=== PATIENT | male | born 1950 | race Caucasian/White ===

== ENCOUNTER 2018-04-17 23:31 | Inpatient (IN) | payer BC ==
[~2018-04-17] VITALS: Ht 185.4 cm; Wt 97.5 kg
[~2018-04-17 23:31] MED LIST: ASPI-858 PO; LISI40TA4 PO; ZOLP10TA2 PO
[2018-04-17 23:45] VITALS: BP_SYST 142
[2018-04-18 01:13] LABS: CREATININE 1.15 mg/dL (0.55-1.30); POTASSIUM 3.9 mmol/L (3.5-5.1)
[2018-04-18 01:14] LABS: BASOPHILS % (AUTO) 0.3 % (0.0-2.0); EOSINOPHILS % (AUTO) 0.3 % (0.0-4.0); HEMATOCRIT 26.1 % (36-54); LYMPHOCYTES # (AUTO) 0.6 K/uL (1.0-5.5); LYMPHOCYTES % (AUTO) 7.9 % (20.5-51.5); MEAN CORPUSCULAR HEMOGLOBIN 25 pg (27-31); MEAN CORPUSCULAR HGB CONC 32 % (32-36); MEAN CORPUSCULAR VOLUME 77 fL (79.0-98.0); MONOCYTES # (AUTO) 0.6 K/uL (0.0-1.0); MONOCYTES % (AUTO) 8.1 % (1.7-9.3); NEUTROPHILS # (AUTO) 6.2 K/uL (1.8-7.7); NEUTROPHILS % (AUTO) 83.4 % (40.0-70.0); PLATELET COUNT (AUTO) 105 K/uL (130-430); RED BLOOD CELL COUNT(AUTO) 3.39 MIL/uL (4.2-6.2); WHITE BLOOD COUNT (AUTO) 7.4 K/uL (4.8-10.8)
[2018-04-18 01:16] LABS: HEMOGLOBIN 8.4 g/dL (14.0-18.0)
[2018-04-18 01:19] LABS: CALCIUM 7.9 mg/dL (8.4-11.0); TOTAL BILIRUBIN 0.5 mg/dL (0.0-1.0)
[2018-04-18] MEDS ORDERED: METO-442 PO (01:52)
[2018-04-18] MEDS ORDERED: PLE5 PO (01:52)
[2018-04-18] MEDS ORDERED: BACL10TA PO (01:53)
[2018-04-18] MEDS ORDERED: NACL 0.9% 1,000 ML IV ONE (02:00)
[2018-04-18] MEDS ORDERED: ONDANSETRON HCL 4 MG/2 ML VIAL IVP ONE (02:00)
[2018-04-18] MEDS ORDERED: AZITHROMYCIN 500 MG in NS 250 ML IV ONE (03:30)
[2018-04-18] MEDS ORDERED: cefTRIAXone 1 GM IVPB PREMIX 50 ML IV ONE (03:30)
[2018-04-18] MEDS ORDERED: ALBUTEROL SULFATE 0.083% 2.5 MG/3 ML VIAL.NEB INH PRN (03:45)
[2018-04-18] MEDS ORDERED: ACETAMINOPHEN 325 MG TABLET PO PRN (03:45)
[2018-04-18] MEDS ORDERED: AZITHROMYCIN 500 MG/VIAL (ZITHROMAX) IV ONE (03:51)
[2018-04-18 04:28] VITALS: BP_SYST 142
[2018-04-18 04:30] VITALS: BP_SYST 138
[2018-04-18 08:00] VITALS: BP_SYST 123
[2018-04-18] MEDS ORDERED: METOPROLOL TARTRATE 50 MG TABLET PO ONE (09:30)
[2018-04-18] MEDS ORDERED: amLODIPine BESYLATE 5 MG TABLET PO ONE (09:30)
[2018-04-18] MEDS ORDERED: ASPIRIN 325 MG TABLET PO ONE (09:30)
[2018-04-18] MEDS ORDERED: LORazepam 2 MG/ML VIAL IVP PRN (09:45)
[2018-04-18] MEDS ORDERED: THIAMINE HCL 100 MG TABLET PO ONE (09:45)
[2018-04-18] MEDS ORDERED: MORPHINE 4 MG/ML INJ. SYRINGE IVP PRN ×2 (09:45)
[2018-04-18 10:14] LABS: BASOPHILS % (AUTO) 0.6 % (0.0-2.0); EOSINOPHILS # (AUTO) 0.1 K/uL (0.0-0.4); EOSINOPHILS % (AUTO) 1.1 % (0.0-4.0); HEMATOCRIT 23.9 % (36-54); HEMOGLOBIN 7.7 g/dL (14.0-18.0); LYMPHOCYTES # (AUTO) 0.9 K/uL (1.0-5.5); MEAN CORPUSCULAR HEMOGLOBIN 25 pg (27-31); MEAN CORPUSCULAR HGB CONC 32 % (32-36); MEAN CORPUSCULAR VOLUME 78 fL (79.0-98.0); MONOCYTES # (AUTO) 0.7 K/uL (0.0-1.0); MONOCYTES % (AUTO) 13.4 % (1.7-9.3); NEUTROPHILS # (AUTO) 3.6 K/uL (1.8-7.7); NEUTROPHILS % (AUTO) 67.9 % (40.0-70.0); RED BLOOD CELL COUNT(AUTO) 3.08 MIL/uL (4.2-6.2)
[2018-04-18 10:23] LABS: WHITE BLOOD COUNT (AUTO) 5.3 K/uL (4.8-10.8)
[2018-04-18 10:27] LABS: CALCIUM 7.4 mg/dL (8.4-11.0); CREATININE 1.22 mg/dL (0.55-1.30); POTASSIUM 3.7 mmol/L (3.5-5.1)
[2018-04-18 10:32] LABS: ALBUMIN 1.9 g/dL (3.4-4.8); TOTAL BILIRUBIN 0.4 mg/dL (0.0-1.0)
[2018-04-18 10:43] LABS: PLATELET COUNT (AUTO) 87 K/uL (130-430)
[2018-04-18 12:08] VITALS: BP_SYST 125
[2018-04-18 15:16] LABS: BILIRUBIN,URINE NEGATIVE (NEGATIVE); BLOOD, URINE 3+ (NEGATIVE); CLARITY/URINE CLEAR (CLEAR); COLOR,URINE YELLOW (YELLOW); GLUCOSE,URINE NEGATIVE (NEGATIVE); KETONES,URINE NEGATIVE (NEGATIVE); LEUKOCYTE ESTERASE ,URINE NEGATIVE (NEGATIVE); NITRITE, URINE NEGATIVE (NEGATIVE); PROTEIN URINE TRACE (NEGATIVE); UROBILINOGEN,URINE 0.2 (0.2-1.0)
[2018-04-18 15:23] LABS: BACTERIA,URINE FEW /HPF (None Seen); WBC,URINE 0-3 /HPF (0-3)
[2018-04-18 16:45] VITALS: BP_SYST 121
[2018-04-18 20:00] VITALS: BP_SYST 125
[2018-04-18] MEDS: METOPROLOL TARTRATE 50 MG TABLET PO SCH (20:34)
[2018-04-18] MEDS ORDERED: BACLOFEN 10 MG TABLET PO SCH (21:00)
[2018-04-19 00:14] VITALS: BP_SYST 124
[2018-04-19] MEDS ORDERED: AZITHROMYCIN 500 MG in NS 250 ML IV SCH (05:00)
[2018-04-19] MEDS ORDERED: cefTRIAXone 1 GM in D5W 50 ML IV SCH (06:00)
[2018-04-19 07:32] VITALS: BP_SYST 126
[2018-04-19] MEDS: METOPROLOL TARTRATE 50 MG TABLET PO SCH (08:16)
[2018-04-19] MEDS ORDERED: amLODIPine BESYLATE 5 MG TABLET PO SCH (09:00)
[2018-04-19] MEDS ORDERED: THIAMINE HCL 100 MG TABLET PO SCH (09:00)
[2018-04-19] MEDS ORDERED: ASPIRIN 325 MG TABLET PO SCH (09:00)
[2018-04-19 12:00] VITALS: BP_SYST 132
[2018-04-19 12:50] VITALS: BP_SYST 149
== END 2018-04-19 13:30 | disposition home or self-care (01) | DRG 194 ==
LOC: SED 23:31 → SMU 04-18 03:33
PROVIDERS: ADMIT Internal Medicine Hospice and Palliative Medicine; ATTEND Internal Medicine Hospice and Palliative Medicine
DX: J18.9 Pneumonia, unspecified organism (principal); E87.1 Hypo-osmolality and hyponatremia; D64.9 Anemia, unspecified; D69.6 Thrombocytopenia, unspecified; I10 Essential (primary) hypertension; F10.20 Alcohol dependence, uncomplicated; Y90.9 Presence of alcohol in blood, level not specified; F17.200 Nicotine dependence, unspecified, uncomplicated; Z88.5 Allergy status to narcotic agent; Z79.899 Other long term (current) drug therapy; Z95.2 Presence of prosthetic heart valve
CPT/HCPCS: 36415; 71045; 80048; 80053; 81000-TC; 83605; 83880; 85025; 85379; 86710; 87040-TC; 87086; 93306; 93970; 96361; 96365; 96367; 96375; 99285; J0456; J0696; J2270; J2405; J7030; J7050; J7060

== ENCOUNTER 2018-05-08 09:05 | Inpatient (IN) | payer BC ==
[~2018-05-08] VITALS: Ht 188 cm; Wt 98.9 kg
[~2018-05-08 09:05] MED LIST changes: +BACL10TA PO; -LISI40TA4 PO; +METO-442 PO; +PLE5 PO; -ZOLP10TA2 PO
--- NOTE | 2018-05-08 09:12 | NUR ---
Placed in room 1. Placed on hand profiler, blood pressure machine and pulse oximeter. To gown for exam. Side rails up. Report given to Barbara BARRY.
[2018-05-08 09:13] VITALS: BP_SYST 162
[2018-05-08] MEDS ORDERED: ALBUTEROL SULFATE 0.083% 2.5 MG/3 ML VIAL.NEB IH ONE (09:15)
[2018-05-08] MEDS ORDERED: IPRATROPIUM BROM 0.5 MG/2.5 ML VIAL.NEB (ATROVENT) IH ONE (09:15)
--- NOTE | 2018-05-08 09:17 | NUR ---
Medication reconciliation completed.
--- NOTE | 2018-05-08 09:24 | NUR ---
# 20 gauge angiocath placed to RAC. Use of asceptic technique. Opsite placed over site. Blood return noted. Blood for lab drawn from site. Flushed with 10 cc of normal saline. No evidence of infiltration noted. Patient tolerated well.
--- NOTE | 2018-05-08 09:24 | NUR ---
RT at bedside for breathing treatment, patient placed on mask. Tolerating well.
--- NOTE | 2018-05-08 09:24 | NUR ---
Patient arrived via POV with at bedside. Patient AAOx4, and able to communicate. Sentences are 5-6 words. Patient states he was here earlier in April for bronchitis and admitted for heart failure evaluation. Patient notes increasing shortness of breathe, productive cough, and pain in abdomen and lower chest related to cough. Patient temperature upon triage was 100.8F. Patient denies nausea, vomiting, diarrhea. Patient placed on regional tanker truck driver, changed to gown, 12-lead EKG completed at bedside, given to MD.
[2018-05-08 09:36] LABS: HEMATOCRIT 24.9 % (36-54); HEMOGLOBIN 8.1 g/dL (14.0-18.0); LYMPHOCYTES % (AUTO) 21.2 % (20.5-51.5); MEAN CORPUSCULAR HEMOGLOBIN 25 pg (27-31); MEAN CORPUSCULAR HGB CONC 33 % (32-36); MEAN CORPUSCULAR VOLUME 76 fL (79.0-98.0); NEUTROPHILS % (AUTO) 65.1 % (40.0-70.0); PLATELET COUNT (AUTO) 187 K/uL (130-430); RED BLOOD CELL COUNT(AUTO) 3.27 MIL/uL (4.2-6.2); RED CELL DISTRIBUTION WIDTH 17.5 % (9.0-15.0); WHITE BLOOD COUNT (AUTO) 3.2 K/uL (4.8-10.8)
[2018-05-08 09:37] LABS: EOSINOPHILS % (AUTO) 1.2 % (0.0-4.0); LYMPHOCYTES # (AUTO) 0.7 K/uL (1.0-5.5); MONOCYTES # (AUTO) 0.4 K/uL (0.0-1.0); MONOCYTES % (AUTO) 11.5 % (1.7-9.3); NEUTROPHILS # (AUTO) 2.1 K/uL (1.8-7.7)
[2018-05-08 10:02] LABS: CALCIUM 7.7 mg/dL (8.4-11.0); CREATININE 1.16 mg/dL (0.55-1.30); POTASSIUM 3.8 mmol/L (3.5-5.1)
[2018-05-08 10:07] LABS: ALBUMIN 2.2 g/dL (3.4-4.8); TOTAL BILIRUBIN 0.3 mg/dL (0.0-1.0)
--- NOTE | 2018-05-08 10:14 | NUR ---
Patient has blood cultures and lactic acid drawn by lab at bedside. IV ABX as ordered started after confirming draw with lab. Will continue to follow up regarding results.
[2018-05-08] MEDS ORDERED: cefTRIAXone 1 GM IVPB PREMIX 50 ML IV ONE (10:15)
[2018-05-08] MEDS ORDERED: methylPREDNISolone SOD SUCC/PF 62.5 MG/ML VIAL IVP ONE (11:30)
[2018-05-08] MEDS ORDERED: KETOROLAC TROMETHAMINE 30 MG VIAL IVP ONE (11:30)
[2018-05-08] MEDS ORDERED: NACL 0.9% 1,000 ML IV ONE (11:30)
--- NOTE | 2018-05-08 11:40 | NUR ---
Warm blanket provided per request
[2018-05-08] MEDS ORDERED: FUROSEMIDE 20 MG/2 ML VIAL IVP ONE (12:30)
[2018-05-08] MEDS ORDERED: AZITHROMYCIN 500 MG in NS 250 ML IV ONE (12:45)
[2018-05-08] MEDS ORDERED: AZITHROMYCIN 500 MG/VIAL (ZITHROMAX) IV ONE (13:06)
--- NOTE | 2018-05-08 13:06 | NUR ---
Patient will be admitted to care of Dr. Kirk. Admitted to MedSurg unit. Will go to room 101A. Belongings list completed. Summary report printed. Report will be given at bedside.
--- NOTE | 2018-05-08 13:28 | NUR ---
ADMIT NOTE Received pt from ER to the floor with a diagnosis of pneumonia. Admission process initiated. patient oriented to pain management, safety and call light-teach back done.
[2018-05-08 13:37] VITALS: BP_SYST 153
[2018-05-08] MEDS ORDERED: IPRATROPIUM BROM 0.5 MG/2.5 ML VIAL.NEB (ATROVENT) INH PRN (13:45)
--- NOTE | 2018-05-08 15:48 | NUR ---
Patient's at bedside. POC is explained.
[2018-05-08 16:13] VITALS: BP_SYST 148
[2018-05-08 18:05] VITALS: BP_SYST 148
--- NOTE | 2018-05-08 18:12 | NUR ---
Patient is eating dinner at this time, no signs of distress noted.
--- NOTE | 2018-05-08 19:12 | NUR ---
OPENING NOTE Received report from Frederic. Patient resting in bed awake, alert, oriented x4. Breathing unlabored and even on 2L oxygen via NC. No signs of distress, no needs at this time. Family at the bedside. Fall and safety precautions in place. Bed in lowest position, brake on, call light within reach. Will continue to monitor.
[2018-05-08] MEDS: IPRATROPIUM BROM 0.5 MG/2.5 ML VIAL.NEB (ATROVENT) INH SCH (19:31)
[2018-05-08 20:16] VITALS: BP_SYST 146
[2018-05-08] MEDS: TEMAZEPAM 15 MG CAPSULE PO PRN (20:49)
--- NOTE | 2018-05-08 20:51 | NUR ---
Patient requested sleeping pill. Administered PRN restoril PO as ordered. Educated patient on safety and side effects. Encouraged call for assist.
--- NOTE | 2018-05-08 21:19 | NUR ---
Patient resting in bed awake, alert, oriented x4. Breathing unlabored and even on 2L oxygen via NC. No signs of distress, no needs at this time. Fall and safety precautions in place. Bed in lowest position, brake on, call light within reach. Will continue to monitor.
--- NOTE | 2018-05-08 21:45 | NUR ---
Assisted patient to the bathroom. Voided x1.
--- NOTE | 2018-05-08 23:57 | NUR ---
Patient resting in bed with eyes closed. Breathing unlabored and even on 2L oxygen via NC. No signs of distress, no needs at this time. Fall and safety precautions in place. Bed in lowest position, brake on, call light within reach. Will continue to monitor.
[2018-05-09 00:40] VITALS: BP_SYST 145
[2018-05-09] MEDS: IPRATROPIUM BROM 0.5 MG/2.5 ML VIAL.NEB (ATROVENT) INH SCH ×4 (00:41→19:40)
--- NOTE | 2018-05-09 07:03 | NUR ---
CLOSING NOTE Patient resting in bed with eyes closed. Breathing unlabored and even on 2L oxygen via NC. No signs of distress, no needs at this time. Fall and safety precautions in place. Bed in lowest position, brake on, call light within reach. Will endorse to day shift nurse.
--- NOTE | 2018-05-09 07:45 | NUR ---
opening note patient is resting in bed, alert and oriented, assessment completed, educated plan of care, patient verbalized understanding and tolerated well, no other needs at this time, fall and safety precautions in place, allergy band on, IV line clean and intact.
[2018-05-09] MEDS: cefTRIAXone 1 GM in D5W 50 ML IV SCH (08:14)
--- NOTE | 2018-05-09 08:14 | NUR ---
morning meds patient is resting in bed, educated on med use and side effects, patient verbalized understanding and tolerated well, no other needs at this time, fall and safety precautions in place, allergy band on, IV line clean and intact.
--- NOTE | 2018-05-09 08:14 | NUR ---
Rocephin patient is resting in bed, educated on medication use and side effects, patient verbalized understanding and tolerated well, no other needs at this time, bed in the lowest position, two side rails up, call light within reach, bed alarm on, allergy band on.
[2018-05-09 08:39] VITALS: BP_SYST 131
[2018-05-09] MEDS ORDERED: amLODIPine BESYLATE 5 MG TABLET PO ONE (09:45)
[2018-05-09] MEDS ORDERED: ASPIRIN 325 MG TABLET PO ONE (09:45)
[2018-05-09] MEDS ORDERED: METOPROLOL TARTRATE 50 MG TABLET PO ONE (09:45)
--- NOTE | 2018-05-09 09:58 | NUR ---
new morning meds patient is resting in bed, educated on med use and side effects, MD put in new orders, patient verbalized understanding and tolerated well, no other needs at this time, fall and safety precautions in place, allergy band on, IV line clean and intact.
[2018-05-09] MEDS ORDERED: IOHEXOL 350 mgI/mL, 150 ML INFUS..BTL IV ONE (10:05)
[2018-05-09] MEDS: AZITHROMYCIN 500 MG in NS 250 ML IV SCH (10:06)
--- NOTE | 2018-05-09 10:06 | NUR ---
zithromax patient is resting in bed, educated on med use and side effects, given late due to prior med scheduled and patient went to CT, patient verbalized understanding and tolerated well, no other needs at this time, fall and safety precautions in place, allergy band on, IV line clean and intact.
--- NOTE | 2018-05-09 10:18 | NUR ---
CONSULT CARDIOLOGY AVR DR CASE [phone] S/W [facility] OFFICE
[2018-05-09 10:39] LABS: HEMOGLOBIN 7.2 g/dL (14.0-18.0); MEAN CORPUSCULAR HEMOGLOBIN 25 pg (27-31); MEAN CORPUSCULAR HGB CONC 33 % (32-36); MEAN CORPUSCULAR VOLUME 76 fL (79.0-98.0); NEUTROPHILS % (AUTO) 74.4 % (40.0-70.0); PLATELET COUNT (AUTO) 194 K/uL (130-430); RED CELL DISTRIBUTION WIDTH 16.8 % (9.0-15.0)
[2018-05-09 10:40] LABS: BASOPHILS % (AUTO) 0.5 % (0.0-2.0); LYMPHOCYTES # (AUTO) 0.4 K/uL (1.0-5.5); LYMPHOCYTES % (AUTO) 14.1 % (20.5-51.5); MONOCYTES # (AUTO) 0.3 K/uL (0.0-1.0); NEUTROPHILS # (AUTO) 2.3 K/uL (1.8-7.7)
[2018-05-09 10:44] LABS: HEMATOCRIT 21.9 % (36-54); RED BLOOD CELL COUNT(AUTO) 2.88 MIL/uL (4.2-6.2); WHITE BLOOD COUNT (AUTO) 3.2 K/uL (4.8-10.8)
[2018-05-09 10:56] LABS: CALCIUM 7.7 mg/dL (8.4-11.0); CREATININE 1.1 mg/dL (0.55-1.30); POTASSIUM 3.7 mmol/L (3.5-5.1)
[2018-05-09 10:59] LABS: TOTAL BILIRUBIN 0.2 mg/dL (0.0-1.0)
--- NOTE | 2018-05-09 11:28 | NUR ---
CONSULT HEMATOLOGY ANEMIA DR DAVIS [phone] S/W [facility]
[2018-05-09 13:33] VITALS: BP_SYST 152
[2018-05-09 17:24] LABS: TOTAL IRON BIND. CAPACITY 332 ug/dL (250-450)
[2018-05-09 17:27] VITALS: BP_SYST 155
[2018-05-09] MEDS ORDERED: FUROSEMIDE 20 MG/2 ML VIAL IVP ONE (18:15)
--- NOTE | 2018-05-09 18:21 | NUR ---
Lasix patient is resting in bed, educated on med use and side effects, MD put in one time order, patient verbalized understanding and tolerated well, no other needs at this time, fall and safety precautions in place, allergy band on, IV line clean and intact.
--- NOTE | 2018-05-09 19:05 | NUR ---
closing note patient is resting in bed, visitors present, no other needs at this time, report given to noc shift nurse, fall and safety precautions in place, allergy band on, IV line clean and intact.
[2018-05-09] MEDS: BACLOFEN 10 MG TABLET PO SCH (20:43)
[2018-05-09] MEDS: METOPROLOL TARTRATE 50 MG TABLET PO SCH (20:43)
[2018-05-09 20:45] VITALS: BP_SYST 153
[2018-05-09] MEDS: TEMAZEPAM 15 MG CAPSULE PO PRN (20:46)
--- NOTE | 2018-05-09 20:47 | NUR ---
Routine Patient sitting on side of bed with no distress noted and no complaint of pain. Scheduled medications given per order. Patient stable.
[2018-05-10 00:07] VITALS: BP_SYST 146
[2018-05-10] MEDS: IPRATROPIUM BROM 0.5 MG/2.5 ML VIAL.NEB (ATROVENT) INH SCH ×4 (01:09→19:45)
--- NOTE | 2018-05-10 03:14 | NUR ---
Routine Patient asleep with no distress noted at this time.
--- NOTE | 2018-05-10 05:50 | NUR ---
PAGED I PAGED DR. EUCEDA @[id number] I SPOKE WITH GEOVANY DE JESUS
[2018-05-10] MEDS: ACETAMINOPHEN 325 MG TABLET PO PRN ×3 (06:22→23:59)
--- NOTE | 2018-05-10 06:24 | NUR ---
Routine Patient requested med for mild headache. Ordered med given. Patient stable throughout shift.
--- NOTE | 2018-05-10 07:45 | NUR ---
Opening Note received report from weight shifter RN, pt resting in bed, no acute distress noted, pt educated on use of call light and asked to call for assistance, pt verbalized understanding, call light in reach, pt educated on use of bed alarm for pt safety, pt refusing bed alarm, bed in low and locked position, fall and aspiration precautions in place.
[2018-05-10 07:56] LABS: CALCIUM 7.5 mg/dL (8.4-11.0); CREATININE 1.05 mg/dL (0.55-1.30); POTASSIUM 3.6 mmol/L (3.5-5.1)
[2018-05-10 08:00] VITALS: BP_SYST 158
[2018-05-10 08:08] LABS: MEAN CORPUSCULAR HEMOGLOBIN 25 pg (27-31); MEAN CORPUSCULAR HGB CONC 33 % (32-36); MEAN CORPUSCULAR VOLUME 77 fL (79.0-98.0); RED BLOOD CELL COUNT(AUTO) 2.86 MIL/uL (4.2-6.2); RED CELL DISTRIBUTION WIDTH 17.2 % (9.0-15.0); WHITE BLOOD COUNT (AUTO) 3.7 K/uL (4.8-10.8)
[2018-05-10 08:09] LABS: PLATELET COUNT (AUTO) 242 K/uL (130-430)
[2018-05-10 08:11] LABS: HEMOGLOBIN 7.3 g/dL (14.0-18.0)
[2018-05-10 08:17] LABS: ALBUMIN 2.1 g/dL (3.4-4.8); THYROID STIMULATING HORMONE 2.54 uIu/mL (0.36-3.74); TOTAL BILIRUBIN 0.2 mg/dL (0.0-1.0)
[2018-05-10 08:19] LABS: TOTAL IRON BIND. CAPACITY 311 ug/dL (250-450)
[2018-05-10] MEDS: ASPIRIN 325 MG TABLET PO SCH (08:21)
[2018-05-10] MEDS: cefTRIAXone 1 GM in D5W 50 ML IV SCH (08:22)
[2018-05-10] MEDS: amLODIPine BESYLATE 5 MG TABLET PO SCH (08:28)
[2018-05-10] MEDS: METOPROLOL TARTRATE 50 MG TABLET PO SCH ×2 (08:29→22:30)
[2018-05-10 09:28] LABS: BASOPHILS % (AUTO) 0.3 % (0.0-2.0); EOSINOPHILS % (AUTO) 1.2 % (0.0-4.0); LYMPHOCYTES # (AUTO) 1.3 K/uL (1.0-5.5); LYMPHOCYTES % (AUTO) 34.2 % (20.5-51.5); MONOCYTES # (AUTO) 0.5 K/uL (0.0-1.0); MONOCYTES % (AUTO) 12.3 % (1.7-9.3); NEUTROPHILS # (AUTO) 1.9 K/uL (1.8-7.7)
--- NOTE | 2018-05-10 10:15 | NUR ---
RN Rounds late note due to meditech downtime pt ambulated to bathroom, voided x1, pt ambulated back to bed, no acute distress noted, pts family at bedside.
[2018-05-10] MEDS: FUROSEMIDE 40 MG TABLET PO SCH (10:26)
[2018-05-10] MEDS: AZITHROMYCIN 500 MG in NS 250 ML IV SCH (10:27)
[2018-05-10 12:46] VITALS: BP_SYST 154
--- NOTE | 2018-05-10 12:53 | NUR ---
RN Rounds pt resting in bed, no acute distress noted, family at bedside, no additional needs at this time, fall and aspiration precautions in place.
[2018-05-10] MEDS ORDERED: IOHEXOL 350 mgI/mL, 150 ML INFUS..BTL IV ONE (13:20)
--- NOTE | 2018-05-10 14:43 | NUR ---
Dietitian Recommendations *Recommend continuing clear liquid diet per MD orders. *If/when medically appropriate, advance diet to 2gm Na. Please see Nutritional Assessment for details. JEANNETTE, RD
[2018-05-10 15:07] VITALS: BP_SYST 158
--- NOTE | 2018-05-10 15:58 | NUR ---
RN Rounds pt resting in bed, pt aware of MDs order for UA, no acute distress noted, no additional needs at this time, fall and aspiration precautions in place.
--- NOTE | 2018-05-10 17:19 | NUR ---
Medication pt and pts educated on PRN tylenol use and side effects, pt and pts verbalized understanding, tolerated medication administration well, no acute distress noted, fall and aspiration precautions in place.
[2018-05-10 17:31] LABS: BILIRUBIN,URINE NEGATIVE (NEGATIVE); BLOOD, URINE 2+ (NEGATIVE); CLARITY/URINE CLEAR (CLEAR); COLOR,URINE YELLOW (YELLOW); GLUCOSE,URINE NEGATIVE (NEGATIVE); KETONES,URINE NEGATIVE (NEGATIVE); LEUKOCYTE ESTERASE ,URINE NEGATIVE (NEGATIVE); NITRITE, URINE NEGATIVE (NEGATIVE); PROTEIN URINE NEGATIVE (NEGATIVE); UROBILINOGEN,URINE 0.2 (0.2-1.0)
[2018-05-10 17:57] LABS: BACTERIA,URINE FEW /HPF (None Seen); MUCUS,URINE None Seen /LPF (None Seen); WBC,URINE 0-3 /HPF (0-3); YEAST,URINE None Seen /HPF (None Seen)
[2018-05-10] MEDS ORDERED: GOLYTELY / COLYTE SOLUTION 4 LITERS PO ONE (18:15)
[2018-05-10] MEDS ORDERED: BISACODYL 5 MG TABLET.DR (DULCOLAX) PO ONE (18:15)
--- NOTE | 2018-05-10 19:25 | NUR ---
Closing Note bedside SBAR report given to receiving RN, pt resting in bed, no acute distress noted, pt denies any pain, pts at bedside, call light in reach, bed in low and locked position, bed alarm on, fall and aspiration precautions in place, care endorsed.
--- NOTE | 2018-05-10 19:40 | NUR ---
ROUNDS PATIENT IN BED, NOT IN DISTRESS, VITALS STABLE. DENIES ANY PAIN AND DISCOMFORT AT THIS TIME. ON GOLYTELY AT THIS TIME FOR HIS SCHEDULED EGD/COLONOSCOPY TOMORROW, TOLERATING WELL. FAMILY AT THE BEDSIDE. NEEDS ATTENDED TO. SAFETY AND FALL PRECAUTION MEASURES IN PLACED. BED IN LOW AND LOCKED POSITION. CALL LIGHT PLACED WITHIN REACH.
[2018-05-10] MEDS: ALBUTEROL SULFATE 0.083% 2.5 MG/3 ML VIAL.NEB INH PRN (19:44)
--- NOTE | 2018-05-10 21:14 | NUR ---
MEDICATION DUE MEDICATIONS GIVEN SCHEDULED, TOLERATED WELL. WILL CONTINUE TO MONITOR.
[2018-05-10] MEDS: BACLOFEN 10 MG TABLET PO SCH (22:29)
[2018-05-10 23:00] VITALS: BP_SYST 144
[2018-05-10] MEDS: TEMAZEPAM 15 MG CAPSULE PO PRN (23:59)
--- NOTE | 2018-05-11 00:20 | NUR ---
PATIENT RESTING: Patient resting quietly. No acute distress noted. Vital signs within normal range.
[2018-05-11] MEDS: ALBUTEROL SULFATE 0.083% 2.5 MG/3 ML VIAL.NEB INH PRN ×2 (01:06→19:55)
[2018-05-11] MEDS: IPRATROPIUM BROM 0.5 MG/2.5 ML VIAL.NEB (ATROVENT) INH SCH ×4 (01:06→19:55)
--- NOTE | 2018-05-11 02:10 | NUR ---
ROUNDS PATIENT ASLEEP, NOT IN DISTRESS, VITALS STABLE. WILL CONTINUE TO MONITOR.
--- NOTE | 2018-05-11 04:15 | NUR ---
PATIENT RESTING: Patient resting quietly. No acute distress noted. Vital signs within normal range.
--- NOTE | 2018-05-11 06:41 | NUR ---
CLOSING NOTES PATIENT AWAKE, VITALS STABLE, DENIES ANY PAIN AND DISCOMFORT AT THIS TIME. CLAIMED TO HAVE CLEAR BOWEL MOVEMENT. ALL NEEDS ATTENDED TO. SAFETY AND FALL PRECAUTION MEASURES MAINTAINED. CALL LIGHT PLACED WITHIN REACH.
[2018-05-11 07:01] LABS: HEMATOCRIT 23.1 % (36-54); HEMOGLOBIN 7.6 g/dL (14.0-18.0); MEAN CORPUSCULAR VOLUME 77 fL (79.0-98.0); RED BLOOD CELL COUNT(AUTO) 3.01 MIL/uL (4.2-6.2); WHITE BLOOD COUNT (AUTO) 4.5 K/uL (4.8-10.8)
[2018-05-11 07:02] LABS: EOSINOPHILS # (AUTO) 0.2 K/uL (0.0-0.4); EOSINOPHILS % (AUTO) 3.5 % (0.0-4.0); LYMPHOCYTES # (AUTO) 1.4 K/uL (1.0-5.5); LYMPHOCYTES % (AUTO) 31.7 % (20.5-51.5); MEAN CORPUSCULAR HEMOGLOBIN 25 pg (27-31); MEAN CORPUSCULAR HGB CONC 33 % (32-36); MONOCYTES # (AUTO) 0.6 K/uL (0.0-1.0); MONOCYTES % (AUTO) 13.1 % (1.7-9.3); NEUTROPHILS # (AUTO) 2.3 K/uL (1.8-7.7); NEUTROPHILS % (AUTO) 50.7 % (40.0-70.0); PLATELET COUNT (AUTO) 278 K/uL (130-430); RED CELL DISTRIBUTION WIDTH 17.3 % (9.0-15.0)
[2018-05-11 07:04] LABS: ALBUMIN 2.1 g/dL (3.4-4.8); CALCIUM 7.5 mg/dL (8.4-11.0); CREATININE 1.03 mg/dL (0.55-1.30); POTASSIUM 3.1 mmol/L (3.5-5.1); TOTAL BILIRUBIN 0.3 mg/dL (0.0-1.0)
--- NOTE | 2018-05-11 07:29 | NUR ---
Opening Note/refuse bed alarm received report from shift supervisor film processing RN, pt resting in bed, no acute distress noted, pt educated on use of call light and asked to call for assistance, pt verbalized understanding, call light in reach, pt educated on use of bed alarm for pt safety, pt refusing bed alarm, bed in low and locked position, fall and aspiration precautions in place.
--- NOTE | 2018-05-11 07:55 | NUR ---
MD Rounds Rounds with Dr. Carroll, per MD okay to give pt clear liquids and medications today until 1100, verified with read back.
[2018-05-11 08:00] VITALS: BP_SYST 164
[2018-05-11 08:11] LABS: FOLATE (FOLIC ACID) 11.5 ng/mL (>3.0)
[2018-05-11] MEDS: POTASSIUM CHLORIDE 20 MEQ TAB.PRT.SR PO SCH (08:44)
[2018-05-11] MEDS: FUROSEMIDE 40 MG TABLET PO SCH (08:45)
[2018-05-11] MEDS: amLODIPine BESYLATE 5 MG TABLET PO SCH (08:46)
[2018-05-11] MEDS: METOPROLOL TARTRATE 50 MG TABLET PO SCH ×2 (08:46→20:21)
[2018-05-11] MEDS: ASPIRIN 325 MG TABLET PO SCH (08:48)
[2018-05-11] MEDS: cefTRIAXone 1 GM in D5W 50 ML IV SCH (08:48)
--- NOTE | 2018-05-11 08:50 | NUR ---
Medication pt educated on use and side effects of medication, pt verbalized understanding, tolerated medication administration well, pt ambulated to bathroom, steady gait noted, pt back in bed, family at bedside, per Dr. Glen luna aspirin this AM, fall and aspiration precautions in place.
[2018-05-11 10:26] VITALS: BP_SYST 144
--- NOTE | 2018-05-11 10:27 | NUR ---
IV catheter IV catheter to left AC leaking, catheter removed, catheter intact, no bleeding, pt educated on purpose and procedure for IV catheter placement, pt verbalized understanding, new IV catheter 22G placed to left forearm, flushes freely with blood return, pt tolerated well, pts family at bedside, fall and aspiration precautions in place.
[2018-05-11] MEDS: AZITHROMYCIN 500 MG in NS 250 ML IV SCH (10:50)
[2018-05-11 12:07] VITALS: BP_SYST 149
--- NOTE | 2018-05-11 12:35 | NUR ---
RN Rounds pt sleeping in bed, respirations even and unlabored, no acute distress noted, fall and aspiration precautions in place.
[2018-05-11] MEDS ORDERED: BENZOCAINE 20% 0.5mL UD SPRAY MM ONE (12:59)
[2018-05-11] MEDS ORDERED: fentaNYL CITRATE/PF 100 MCG/2 ML AMP ONE ×2 (12:59→16:59)
[2018-05-11] MEDS ORDERED: SIMETHICONE 40 MG/0.6 ML ML ONE (12:59)
[2018-05-11] MEDS ORDERED: MIDAZOLAM HCL 5 MG/5 ML VIAL ONE (13:00)
--- NOTE | 2018-05-11 14:14 | NUR ---
RN Rounds pt resting in bed, at bedside, no acute distress noted, no additional needs at this time, fall and aspiration precautions in place.
--- NOTE | 2018-05-11 14:38 | NUR ---
to GI pt taken to GI lab via wheelchair.
[2018-05-11 17:40] VITALS: BP_SYST 156
--- NOTE | 2018-05-11 17:40 | NUR ---
back from GI pt brought back from GI lab via wheelchair, no acute distress noted, pts at bedside, pt denies any pain, fall and aspiration precautions in place.
--- NOTE | 2018-05-11 19:06 | NUR ---
Closing Note bedside SBAR report given to receiving RN, pt resting in bed, no acute distress noted, at bedside, call light in reach, bed in low and locked position, bed alarm on, fall and aspiration precautions in place, care endorsed.
--- NOTE | 2018-05-11 19:35 | NUR ---
ROUNDS PATIENT RESTING COMFORTABLY IN BED, VITALS STABLE, DENIES ANY PAIN AND DISCOMFORT AT THIS TIME. SHIFT ASSESSMENT DONE AND DOCUMENTED. SEE FLOWSHEET. NEEDS ATTENDED TO. SAFETY AND FALL PRECAUTION MEASURES IN PLACED. BED IN LOW AND LOCKED POSITION. CALL LIGHT PLACED WITHIN REACH.
[2018-05-11] MEDS: ACETAMINOPHEN 325 MG TABLET PO PRN (19:37)
[2018-05-11 20:00] VITALS: BP_SYST 153
[2018-05-11] MEDS: BACLOFEN 10 MG TABLET PO SCH (20:21)
--- NOTE | 2018-05-11 21:30 | NUR ---
DR. TAMEKA ENGLISH CALLED BACK WITH NEW ORDERS TO START G TUBE FEEDING WITH JEVITY 1.2 @ 20 ML/HR AND INCREASE TO 10 ML Q 6HR WITH A GOAL OF 60 ML/HR AND OK ALSO TO USE GTUBE FOR MEDICATION. WILL CONTINUE TO MONITOR.
--- NOTE | 2018-05-11 22:30 | NUR ---
NOTES G TUBE FEEDING WITH JEVITY 1.2 STARTED @ ORDERED RATE OF 20 ML/HR, TOLERATED WELL. WILL CONTINUE TO MONITOR. Addendum: 05/11/18 at 2348 by Nimco Chase RN WRONG PATIENT, WRONG ENTRY. Addendum: 05/11/18 at 2349 by Nimco Chase RN WRONG ENTRY, WRONG PATIENT.
--- NOTE | 2018-05-12 00:12 | NUR ---
PATIENT RESTING: Patient resting quietly. No acute distress noted. Vital signs within normal range.
[2018-05-12] MEDS: IPRATROPIUM BROM 0.5 MG/2.5 ML VIAL.NEB (ATROVENT) INH SCH ×2 (01:54→07:20)
[2018-05-12] MEDS: ALBUTEROL SULFATE 0.083% 2.5 MG/3 ML VIAL.NEB INH PRN (01:55)
--- NOTE | 2018-05-12 02:13 | NUR ---
ROUNDS PATIENT ASLEEP, RESPIRATIONS EVEN AND UNLABORED, WILL CONTINUE TO MONITOR.
--- NOTE | 2018-05-12 04:15 | NUR ---
PATIENT RESTING: Patient resting quietly. No acute distress noted. Vital signs within normal range.
--- NOTE | 2018-05-12 06:43 | NUR ---
CLOSING NOTES PATIENT AWAKE, VITALS STABLE, DENIES ANY PAIN AND DISCOMFORT AT THIS TIME. ALL NEEDS ATTENDED TO. SAFETY MEASURES MAINTAINED. CALL LIGHT PLACED WITHIN REACH.
[2018-05-12 07:31] LABS: CREATININE 0.82 mg/dL (0.55-1.30); POTASSIUM 3.1 mmol/L (3.5-5.1)
[2018-05-12 07:38] LABS: HEMATOCRIT 23.9 % (36-54); HEMOGLOBIN 7.9 g/dL (14.0-18.0); MEAN CORPUSCULAR VOLUME 76 fL (79.0-98.0); RED BLOOD CELL COUNT(AUTO) 3.16 MIL/uL (4.2-6.2)
[2018-05-12 07:39] LABS: BASOPHILS % (AUTO) 0.8 % (0.0-2.0); EOSINOPHILS # (AUTO) 0.2 K/uL (0.0-0.4); EOSINOPHILS % (AUTO) 5.2 % (0.0-4.0); LYMPHOCYTES # (AUTO) 1.4 K/uL (1.0-5.5); LYMPHOCYTES % (AUTO) 33.7 % (20.5-51.5); MEAN CORPUSCULAR HEMOGLOBIN 25 pg (27-31); MEAN CORPUSCULAR HGB CONC 33 % (32-36); MONOCYTES # (AUTO) 0.4 K/uL (0.0-1.0); MONOCYTES % (AUTO) 9.4 % (1.7-9.3); NEUTROPHILS # (AUTO) 2.1 K/uL (1.8-7.7); NEUTROPHILS % (AUTO) 50.9 % (40.0-70.0); PLATELET COUNT (AUTO) 263 K/uL (130-430); RED CELL DISTRIBUTION WIDTH 16.8 % (9.0-15.0)
[2018-05-12 07:42] VITALS: BP_SYST 155
--- NOTE | 2018-05-12 08:00 | NUR ---
Note Pt sitting up in bed eating his breakfast. IV in left hand intact and patent at this time. No SOB/resp distress or abdominal pain/discomfort noted at this time. No needs noted. Call light within reach.
[2018-05-12] MEDS: cefTRIAXone 1 GM in D5W 50 ML IV SCH (08:25)
[2018-05-12] MEDS: FUROSEMIDE 40 MG TABLET PO SCH (08:29)
[2018-05-12] MEDS: METOPROLOL TARTRATE 50 MG TABLET PO SCH (08:30)
[2018-05-12] MEDS: POTASSIUM CHLORIDE 20 MEQ TAB.PRT.SR PO SCH (08:30)
[2018-05-12] MEDS: ASPIRIN 325 MG TABLET PO SCH (08:30)
[2018-05-12] MEDS: amLODIPine BESYLATE 5 MG TABLET PO SCH (08:31)
[2018-05-12 08:53] LABS: RETICULOCYTE COUNT 1.8 % (0.5-1.5)
[2018-05-12] MEDS: AZITHROMYCIN 500 MG in NS 250 ML IV SCH (09:11)
--- NOTE | 2018-05-12 09:22 | NUR ---
Nutrition update Hunter Scale 18 noted Pt admitted for Pneumonia, HypoNa+ Diet: Mech Soft BMI: 28 RD to follow per nutrition care standards.
--- NOTE | 2018-05-12 10:30 | NUR ---
Note Dr Kirk on the floor and will be assessing pt shortly.
--- NOTE | 2018-05-12 10:45 | NUR ---
Note Pt sitting up in bed talking to visitor and IVPB antibiotic infusing well through left hand IV site. Pt tolerated his regular diet for breakfast well. Denies any abdominal pain/discomfort/nausea/vomiting at this time. Pt's and friend visited this morning and now have gone to run errands, stated they would be back shortly. Call light within reach. No needs noted at this time.
[2018-05-12] MEDS ORDERED: LEVO750T45 PO (11:19)
[2018-05-12 11:29] VITALS: BP_SYST 154
--- NOTE | 2018-05-12 11:51 | NUR ---
DC Planning: updated Marlys at [facility] [place] that the pt. is being today and will need capsule endoscopy out patient.
[2018-05-12 12:12] VITALS: BP_SYST 137
--- NOTE | 2018-05-12 12:50 | NUR ---
Note Dr Kirk came to see pt and order for discharge was given. Pt's IV in left hand was dc'd and site benign. No bleeding/redness/drainage noted at this time. Pt was given discharge instructions and prescription. Questions/concerns were answered at this time. Pt dressed in street clothes and packed all belongings. Pt checked side table and drawers for belongings. No SOB/resp distress or abdominal pain/discomfort was noted at this time. Pt was checked on q1' and PRN all shift for needs and care. Pt stable at this time. Call light within reach.
--- NOTE | 2018-05-12 13:45 | NUR ---
Note Pt off the floor with all his belongings and discharge paperwork/prescription to private car. Pt stable. No needs noted.
--- NOTE | 2018-05-15 14:48 | NUR ---
DISCHARGE FOLLOW UP PHONE CALL: HAND BASEBALL SEWER phoned pt @ [phone]. HAND BASEBALL SEWER spoke with pt who states he is doing well. Pt states he was able to fill his antibiotic but no questions about his medication instructions. Pt does not have an appointment with any physicians, but will go to his PCP's office hoping to be seen today. Pt did not appear to know which doctor's he needed to see; HAND BASEBALL SEWER informed pt that Dr. Fajardo wanted to follow up with him as well as a need to get a referral for a vascular surgeon and/or semi automatic sewing machine operator. Pt stated he is in the middle of getting a referral for a semi automatic sewing machine operator, but will notify PCP of a need to see a vascular surgeon. HAND BASEBALL SEWER encouraged pt to read the instructions and bring discharge instructions to his doctor appointments; pt agreed. HAND BASEBALL SEWER encouraged pt to call SS if any questions/concerns arise. No further follow up call needed at this time.
== END 2018-05-12 13:45 | disposition home or self-care (01) | DRG 194 ==
LOC: SED 09:05 → SMU 12:49
PROVIDERS: ADMIT Internal Medicine Hospice and Palliative Medicine; ATTEND Internal Medicine Hospice and Palliative Medicine
PROC: 0DB68ZX Excision of Stomach, Via Natural or Artificial Opening Endoscopic, Diagnostic (ICD-10-PCS; principal; 2018-05-11 15:15)
PROC: 0DBK8ZZ Excision of Ascending Colon, Via Natural or Artificial Opening Endoscopic (ICD-10-PCS; 2018-05-11 15:15)
DX: J18.9 Pneumonia, unspecified organism (principal); I50.30 Unspecified diastolic (congestive) heart failure; E87.1 Hypo-osmolality and hyponatremia; K29.60 Other gastritis without bleeding; D50.9 Iron deficiency anemia, unspecified; K63.5 Polyp of colon; J20.9 Acute bronchitis, unspecified; I48.0 Paroxysmal atrial fibrillation; I73.9 Peripheral vascular disease, unspecified; I08.0 Rheumatic disorders of both mitral and aortic valves; I11.0 Hypertensive heart disease with heart failure; K40.90 Unilateral inguinal hernia, without obstruction or gangrene, not specified as recurrent; K57.30 Diverticulosis of large intestine without perforation or abscess without bleeding; I72.3 Aneurysm of iliac artery; F10.20 Alcohol dependence, uncomplicated; Y90.9 Presence of alcohol in blood, level not specified; Z79.82 Long term (current) use of aspirin; Z87.01 Personal history of pneumonia (recurrent); Z87.891 Personal history of nicotine dependence; Z95.2 Presence of prosthetic heart valve; Z88.5 Allergy status to narcotic agent; Z79.899 Other long term (current) drug therapy; Z82.49 Family history of ischemic heart disease and other diseases of the circulatory system
CPT/HCPCS: 36415; 43239; 45385; 71045; 71275; 74175; 76700-TC; 80048; 80053; 81000-TC; 82607; 82728; 82746; 83540-TC; 83550-TC; 83605; 83615-TC; 83880; 84443-TC; 84484; 85025; 85044-TC; 85379; 85651-TC; 86140; 87040-TC; 87081; 88305; 88312; 88313; 93005; 94640; 94760; 96365; 96367; 96375; 99285; J0456; J0696; J1885; J1940; J2250; J2930; J3010; J7030; J7050; J7060; J7613; Q9967